=== PATIENT | female | born 1995 | race Caucasian/White ===

== ENCOUNTER 2016-08-21 16:49 | Emergency (ER) | payer MEDICAID ==
--- NOTE | 2016-08-21 17:30 | ED Physician Chart ---
Chief Complaint/HPI - Patient Information Date Seen:: 08/21/16 Time Seen:: 17:10 Chief Complaint:: Left Buttock Redness and Swelling History of Present Illness:: Onset x 4 days of 2 localized areas of swelling and redness of the left buttock region; no fever, chills, C/P, SOB, Abd. pain, A/N/V/D/C,cough, paresthesias, weakness, gait changes, discharge, pain, numbness, vertigo, dizziness, H/As, de león; no trauma; Last Tetanus Shot: < 5 years; UTD Allergies:: Allergies Allergy/AdvReac Type Severity Reaction Status Date / Time No Known Allergies Allergy Verified 08/21/16 17:08 Vitals:: Vital Signs - 8 hr 08/21/16 08/21/16 17:08 17:17 Temp 97.9 F 97.9 F HR 91 91 RR 16 16 BP 130/86 O2 Sat % 98 99 Historian:: Patient, Family Member Review:: Nurse's Note Reviewed Review of Systems - Review of Systems General/Constitutional: Fever, Chills, No weight loss, No weakness, No diaphoresis, No edema, No loss of appetite Skin: Skin lesions, Rash, No bruising Head: No headache, No light-headedness Eyes: No loss of vision, No pain, No diplopia ENT: No earache, No nasal drainage, No sore throat, No tinnitus Neck: No neck pain, No swelling, No thyromegaly, No stiffness, No mass noted Cardio Vascular: No chest pain, No palpitations, No PND, No orthopnea, No edema Pulmonary: No SOB, Cough, No sputum, No wheezing GI: Nausea, Vomiting, Diarrhea, No diarrhea, No pain, No melena, No hematochezia , No constipation, No hematemesis G/U: No dysuria, No frequency, No hematuria [employer]: No vaginal discharge, No abnormal vaginal bleed, No contraction Musculoskeletal: No bone or joint pain, No back pain, No muscle pain Endocrine: No polyuria, No polydipsia Psychiatric: No prior psych history, No depression, No anxiety, No suicidal ideation, No homicidal ideation, No auditory hallucination, No visual hallucination Hematopoietic: No bruising, No lymphadenopathy Allergic/Immuno: No urticaria, No angioedema Neurological: No syncope, No focal symptoms, No weakness, No paresthesia, No headache, No seizure, No dizziness, No confusion, No vertigo Past Medical History - Past Medical History Past Medical History: No significant medical hx Family History: HTN Social History: Non Smoker, No Alcohol, No Drug Use, Single, Lives With Parents Surgical History: None Psychiatricy History: None Medication: Reviewed Family Medical History - Family Member Mother Ethnicity: Non- Living Status: Still Living Physical Exam - Physical Examination General/Constitutional: Awake, Well-developed, well-nourished, Alert, No distress, GCS 15, Non-toxic appearing, Ambulatory Head: Atraumatic Eyes: Lids, conjuctiva normal, PERRL, EOMI Skin: Nl inspection, No rash, No skin lesions, No ecchymosis, Well hydrated, No lymphadenopathy Other Skin comments:: Localized Cellulitis around 2 small hair follicles papules at the soft tissue of the middle Left Buttock/Gluteal Region; no FBs; no damaris-rectal abscess; no absceeses; no discharge; good motor and sensory functions; good NV functions; Left Gluteal Small Abscess; no FBs ENMT: External ears, nose nl, Nasal exam nl, Lips, teeth, gums nl Neck: Nontender, Full ROM w/o pain, No JVD, No nuchal rigidity, No bruit, No mass, No stridor Respiratory: Nl effort/Exclusion, Clear to Auscultation, No Wheeze/Rhonchi/Rales Cardio Vascular: RRR, No murmur, gallop, rubs, NL S1 S2 GI: No tenderness/rebounding/guarding, No organomegaly, No hernia, Normal BS's, Nondistended, No mass/bruits, No McBurney tenderness : No CVA tenderness Extremities: No tenderness or effusion, Full ROM, normal strength in all extremities, No edema, Normal digits & nails Neuro/Psych: Alert/oriented, DTR's symmetric, Normal sensory exam, Normal motor strength, Judgement/insight normal, Mood normal, Normal gait, No focal deficits Misc: normal gait, Normal back, No paraspinal tenderness Assessment - Procedures Procedures:: Incision and Drainage of Left Gluteal Abscess; small amount of purulent discharge; sent for CandS; Bacitracin ointment and dressing applied; pt tolerated procedure well; no complications; Area was thoroughly prepped and cleansed with betadine; Xylocaine 1%; 1.0cc sub-Q used for local anesthesia; Iodoform Gauze Packing inserted into the Abscess Incised Wound for drainage purposes; Bacitracin ointment and dressing applied Informed Consent: Procedure/risk/benefits explained by MD: Yes ED Septic Shock - . Is Septic Shock (SBP<90, OR Lactate>4 mmol\L) present?: No - <6hrs of presentation: Vital Signs: Vital Signs - 8 hr 08/21/16 08/21/16 17:08 17:17 Temp 97.9 F 97.9 F HR 91 91 RR 16 16 BP 130/86 O2 Sat % 98 99 Reassessment (Disposition) - Reassessment Reassessment Condition:: Improved - Diagnosis Diagnosis:: Localized Cellulitis; Papules; Probable Local Staph Skin Infection 2ndary to Hair follicles 2ndary to Sebaceous Glands; Abscess - Aftercare/Follow up Instructions Aftercare/Follow-Up Instructions:: Counseled pt regarding lab results/diagnosis & need follow up, Refer to Discharge Instructions, Counseled pt & family regarding lab results/diagnosis & need follow up Medication Prescribed:: Rx: Keflex 500mg po qid x 10 days; Neosporin ointment bid x 14 days; Tylenol 500mg po qid prn pain and/or fever; Warm Compresses; Have Packing changed in one day; Have Abscess Wound checked in one day - Patient Disposition Discharge/Transfer:: Home Condition at Disposition:: Stable, Improved (RTER prn if existing s/s reoccur and/or get worse and/or any other new s/s occur; ACIs given for all above Dx; F/ U with PMD in one day or prn; Refer to Vascular Surgeon/Guest Services Lead OSITO; RTER prn if concerned) ED Discharge Plan - Patient Disposition Admit/Discharge/Transfer: PT DISCHARGED HOME Condition at Disposition: Improved Prescriptions: Acetaminophen [Tylenol] 500 mg PO Q6HR PRN #20 tab PRN Reason: Pain (Mild) Cephalexin [Keflex] 500 mg PO Q6HR #40 cap Instructions: Cellulitis Accepting Physician: Pa Martinez [Provisional Staff] - 1-3 Days
[2016-08-21] MEDS ORDERED: Bacitracin pkt 1 gm Pkt TP ONE (17:59)
[2016-08-21] MEDS ORDERED: Bacitracin pkt 1 gm Pkt TP STA (18:01)
== END 2016-08-21 18:15 | disposition home or self-care (01) ==
LOC: ER 16:49
DX: L02.31 Cutaneous abscess of buttock (principal)
CPT/HCPCS: 99283; 96372; 10060; Z7610; J0696; Z7502

== ENCOUNTER 2016-08-22 14:38 | Emergency (ER) | payer MEDICAID ==
--- NOTE | 2016-08-22 15:38 | ED Physician Chart ---
Chief Complaint/HPI - Patient Information Date Seen:: 08/22/16 Time Seen:: 14:40 Chief Complaint:: W0UND CHECK LT BUTTOCK History of Present Illness:: This 20-year-old female was seen yesterday in the emergency department where she underwent incision and drainage of an abscess on the left buttocks. Patient is having decreased discomfort in the area since yesterday. Physical examination there was partial extravasation of the packing material and minimal induration and tenderness to palpation. The wound was redressed and the patient instructed to change the dressing on a daily basis. If she has increased pain and she was instructed to return to the emergency department for reevaluation. Allergies:: Allergies Allergy/AdvReac Type Severity Reaction Status Date / Time No Known Allergies Allergy Verified 08/21/16 17:08 Vitals:: Vital Signs - 8 hr 08/22/16 08/22/16 14:54 14:58 Temp 99.3 F 98.2 F HR 84 74 RR 17 16 BP 113/53 117/56 O2 Sat % 99 16 Review of Systems - Review of Systems General/Constitutional: No fever, No chills, No diaphoresis Skin: Skin lesions, No bruising, Other (left buttock region.) Head: No headache Eyes: No loss of vision, No diplopia ENT: No earache, No nasal drainage, No sore throat, No tinnitus Neck: No neck pain, No stiffness, No mass noted Cardio Vascular: No palpitations, No orthopnea, No edema Pulmonary: No SOB, No cough, No sputum, No wheezing GI: No nausea, No vomiting, No diarrhea, No pain G/U: No dysuria, No frequency, No hematuria Musculoskeletal: No bone or joint pain, No back pain, No muscle pain Psychiatric: No prior psych history, No depression, No suicidal ideation Hematopoietic: No bruising, No lymphadenopathy Allergic/Immuno: No urticaria, No angioedema Neurological: No syncope, No focal symptoms, No weakness, No paresthesia, No headache, No seizure, No dizziness, No confusion, No vertigo Family Medical History - Family Member Mother Ethnicity: Non- Living Status: Still Living Hx Family Coronary Artery Disease: No Hx Family Hypertension: No Hx Family Stroke: No Hx Family Diabetes: No Hx Family Seizures: No Hx Family Dementia: No Hx Family AIDS: No Hx Family HIV: No Hx Family COPD: No Physical Exam - Physical Examination General/Constitutional: Well-developed, well-nourished, Alert, No distress, GCS 15, Non-toxic appearing, Ambulatory Eyes: Lids, conjuctiva normal, PERRL (The patient had a incised abscess in the left buttocks region. There was a diameter of approximately 2.5 cm without fluctuance. There was a gauze wick protruding from the incision. There was minimal tenderness in the region.), EOMI Assessment - Assessment General Assessment: CASE SUMMARY: this 20-year-old female had undergone I/D of an abscess on hABS buttocks yesterday. She returns today for a wound check. The physical examination was limited to the buttocks The incised area had a protruding gauze wick. There was minimal tenderness to palpation and there is no erythema. It appeared to me that the patient was doing well. The wound area was dressed by nursing and the patient was discharged home. She was advised to return to the emergency department if she had any increase pain or swelling in the area of the abscess. She was further advised that if the wick fell out she did not needs return to the emergency department and less there was further pain and swelling. Discharged in stable condition. MDM DDX FOR RE-CHECK OF BUTTOX ABSCESS: NO cellulitis based on physical examination. NO Necrotizing fasciitis based on physical exam. NOT Acute sepsis based on vital signs and physical exam. O ED Septic Shock - . Is Septic Shock (SBP<90, OR Lactate>4 mmol\L) present?: No - <6hrs of presentation: Vital Signs: Vital Signs - 8 hr 08/22/16 08/22/16 14:54 14:58 Temp 99.3 F 98.2 F HR 84 74 RR 17 16 BP 113/53 117/56 O2 Sat % 99 16 Reassessment (Disposition) - Reassessment Reassessment Condition:: Unchanged - Aftercare/Follow up Instructions Notes:: No laboratory or radiographic studies were indicated. ED Discharge Plan - Patient Disposition Admit/Discharge/Transfer: PT DISCHARGED HOME Condition at Disposition: Stable Instructions: Wound Check
== END 2016-08-22 15:09 | disposition home or self-care (01) ==
LOC: ER 14:38
DX: L02.31 Cutaneous abscess of buttock (principal)